=== PATIENT | female | born 1955 | race African-American/Black ===

== ENCOUNTER 2020-02-28 06:46 | Emergency (ER) | payer BC, MEDICAID ==
[~2020-02-28] VITALS: Ht 172.7 cm; Wt 61.2 kg
[2020-02-28 06:46] VITALS: BP_SYST 154
--- NOTE | 2020-02-28 07:02 | NUR ---
Patient to ER bed 6 to gown for evaluation. Side rails up.
--- NOTE | 2020-02-28 07:05 | NUR ---
Patient presented to ER C/O back pain. Patient A&Ox4, ambulatory to ER, afebrile, skin pink and warm, pain 10/10, denies N/V/D, bilat pedal pulses present. Patient states she has hx of sciatic pain and back pain. Patient states she has pain in right foot radiating to back.
--- NOTE | 2020-02-28 07:50 | NUR ---
ER Dr. Sinclair at bedside examining patient.
[2020-02-28] MEDS ORDERED: NACL 0.9% 1,000 ML IV ONE (07:54)
[2020-02-28] MEDS ORDERED: MORPHINE 4 MG/ML INJ. SYRINGE IVP ONE (08:00)
[2020-02-28] MEDS ORDERED: ONDANSETRON HCL 4 MG/2 ML VIAL IVP ONE (08:00)
[2020-02-28] MEDS ORDERED: LORazepam 2 MG/ML VIAL IVP ONE (08:00)
--- NOTE | 2020-02-28 08:37 | NUR ---
Note sharyn in ED - 02/28/20 at 0838 by BERTIN G-tube placement failed. Charge nurse Ricarda made aware.
[2020-02-28 08:50] LABS: BASOPHILS % (AUTO) 0.4 % (0.0-2.0); EOSINOPHILS # (AUTO) 0.2 K/uL (0.0-0.4); EOSINOPHILS % (AUTO) 2.2 % (0.0-4.0); HEMATOCRIT 45.4 % (36-48); HEMOGLOBIN 16.1 g/dL (12.0-16.0); LYMPHOCYTES # (AUTO) 2.3 K/uL (1.0-5.5); MEAN CORPUSCULAR HEMOGLOBIN 34 pg (27-31); MEAN CORPUSCULAR HGB CONC 36 % (32-36); MEAN CORPUSCULAR VOLUME 96 fL (79.0-98.0); MONOCYTES # (AUTO) 0.3 K/uL (0.0-1.0); MONOCYTES % (AUTO) 4.1 % (1.7-9.3); NEUTROPHILS # (AUTO) 5.4 K/uL (1.8-7.7); NEUTROPHILS % (AUTO) 65.3 % (40.0-70.0); PLATELET COUNT (AUTO) 232 K/uL (130-430); RED BLOOD CELL COUNT(AUTO) 4.76 MIL/uL (4.2-6.2); RED CELL DISTRIBUTION WIDTH 13.1 % (9.0-15.0); WHITE BLOOD COUNT (AUTO) 8.3 K/uL (4.8-10.8)
[2020-02-28 09:03] LABS: CALCIUM 8.9 mg/dL (8.4-11.0); CREATININE 0.89 mg/dL (0.55-1.30)
[2020-02-28 09:04] LABS: BILIRUBIN,URINE NEGATIVE (NEGATIVE); BLOOD, URINE NEGATIVE (NEGATIVE); CLARITY/URINE CLEAR (CLEAR); COLOR,URINE YELLOW (YELLOW); GLUCOSE,URINE NEGATIVE (NEGATIVE); KETONES,URINE NEGATIVE (NEGATIVE); LEUKOCYTE ESTERASE ,URINE NEGATIVE (NEGATIVE); NITRITE, URINE NEGATIVE (NEGATIVE); PH,URINE 5.5 (5.0-8.0); PROTEIN URINE NEGATIVE (NEGATIVE); UROBILINOGEN,URINE 0.2 (0.2-1.0)
[2020-02-28 09:08] LABS: ALBUMIN 4.1 g/dL (3.4-4.8); TOTAL BILIRUBIN 0.5 mg/dL (0.0-1.0)
[2020-02-28] MEDS ORDERED: ACETAMINOPHEN 500 MG TABLET PO ONE (10:15)
[2020-02-28 10:50] VITALS: BP_SYST 145
--- NOTE | 2020-02-28 10:50 | NUR ---
Patient given written and verbal discharge instructions and verbalizes understanding. ER MD discussed with patient the results and treatment provided. Patient in stable condition. ID arm band removed. IV catheter removed intact and dressing applied, no active bleeding. Rx of TYLENOL W/CODEINE, TYLENOL & FLEXERIL given. Patient educated on pain management and to follow up with PMD. Pain Scale 3/10. Opportunity for questions provided and answered. Medication side effect fact sheet provided.
== END 2020-02-28 10:50 | disposition home or self-care (01) ==
LOC: SED 06:46
DX: M54.41 Lumbago with sciatica, right side (principal); G89.29 Other chronic pain
CPT/HCPCS: 36415; 72100; 80053; 81003; 83605; 83690; 85025; 87040; 96374; 96375; 99284; J2060; J2270; J2405; J7030

== ENCOUNTER 2020-08-30 23:30 | Emergency (ER) | payer BC ==
[~2020-08-30] VITALS: Ht 172.7 cm; Wt 63.5 kg
[2020-08-30 23:35] VITALS: BP_SYST 136
--- NOTE | 2020-08-30 23:40 | NUR ---
Placed in room 2 . Placed on equipment monitor phototypesetting, blood pressure machine and pulse oximeter. To gown for exam. Side rails up. Report given to Fatou RODRIGUEZ.
--- NOTE | 2020-08-30 23:50 | NUR ---
PORTABLE X-RAY AT THE BEDSIDE
--- NOTE | 2020-08-30 23:54 | NUR ---
ER at bedside examining patient.
[2020-08-31] MEDS ORDERED: NITROGLYCERIN 0.4 MG TAB.SUBL SL ONE
[2020-08-31] MEDS ORDERED: ASPIRIN 81 MG TAB.CHEW PO ONE
--- NOTE | 2020-08-31 00:02 | NUR ---
# 20 gauge angiocath placed to LEFT FA. Use of asceptic technique. Opsite placed over site. Blood return noted. Blood for lab drawn from site. Flushed with 10 cc of normal saline. No evidence of infiltration noted. Patient tolerated well.
--- NOTE | 2020-08-31 00:06 | NUR ---
FIRST DOSE OF NITRO 0.4 GIVEN WITH ASA 162MG PO
--- NOTE | 2020-08-31 00:11 | NUR ---
PT REPORTS NOT RELIEF FROM CHEST PAIN 07/23. SECOND DOSE OF NITRO 0.4MG GIVEN SUBLINGUAL
[2020-08-31 00:28] LABS: BASOPHILS # (AUTO) 0.1 K/uL (0.0-0.2); BASOPHILS % (AUTO) 0.6 % (0.0-2.0); EOSINOPHILS # (AUTO) 0.3 K/uL (0.0-0.4); EOSINOPHILS % (AUTO) 1.8 % (0.0-4.0); HEMATOCRIT 41.6 % (36-48); HEMOGLOBIN 14.6 g/dL (12.0-16.0); LYMPHOCYTES # (AUTO) 2.2 K/uL (1.0-5.5); LYMPHOCYTES % (AUTO) 15.8 % (20.5-51.5); MEAN CORPUSCULAR HEMOGLOBIN 30 pg (27-31); MEAN CORPUSCULAR HGB CONC 35 % (32-36); MEAN CORPUSCULAR VOLUME 86 fL (79.0-98.0); MONOCYTES # (AUTO) 0.7 K/uL (0.0-1.0); MONOCYTES % (AUTO) 5.1 % (1.7-9.3); NEUTROPHILS # (AUTO) 10.9 K/uL (1.8-7.7); NEUTROPHILS % (AUTO) 76.7 % (40.0-70.0); PLATELET COUNT (AUTO) 259 K/uL (130-430); RED BLOOD CELL COUNT(AUTO) 4.82 MIL/uL (4.2-6.2); RED CELL DISTRIBUTION WIDTH 12.6 % (9.0-15.0); WHITE BLOOD COUNT (AUTO) 14.2 K/uL (4.8-10.8)
[2020-08-31 00:30] LABS: CREATININE 0.57 mg/dL (0.55-1.30); POTASSIUM 3.8 mmol/L (3.5-5.1)
[2020-08-31] MEDS ORDERED: DIPHENHYDRAMINE INJ 50 MG/ML VIAL IVP ONE (00:30)
[2020-08-31] MEDS ORDERED: ONDANSETRON HCL 4 MG/2 ML VIAL IVP ONE (00:30)
[2020-08-31] MEDS ORDERED: MORPHINE 4 MG/ML INJ. SYRINGE IVP ONE (00:30)
[2020-08-31 00:36] LABS: PROTHROMBIN TIME 10.3 SECS (9.5-12.5)
[2020-08-31 00:37] LABS: ALBUMIN 3.7 g/dL (3.4-4.8); TOTAL BILIRUBIN 0.5 mg/dL (0.0-1.0)
--- NOTE | 2020-08-31 00:42 | NUR ---
CRITICAL LAB REPORTING - TROPONIN 0.360. AWARE.
[2020-08-31] MEDS ORDERED: ENOXAPARIN SODIUM 80 MG/0.8 ML SYRINGE SUBCUT ONE (01:15)
--- NOTE | 2020-08-31 01:15 | NUR ---
EKG FAXED TO [facility] FOR STEMI REVIEW
--- NOTE | 2020-08-31 01:19 | NUR ---
ADMISSION ORDER RECEIVED FROM DR. YING
--- NOTE | 2020-08-31 01:25 | NUR ---
DR. YING IN ER TO SEE PT. EKG REVIEWED AND [facility]
[2020-08-31] MEDS ORDERED: PANTOPRAZOLE SODIUM 40 MG/VIAL (PROTONIX) IVP ONE (01:30)
[2020-08-31] MEDS ORDERED: SYN50 PO (01:56)
--- NOTE | 2020-08-31 02:00 | NUR ---
[facility] REFUSED [place].
--- NOTE | 2020-08-31 02:05 | NUR ---
ICH CALLED AND EKG FAXED. DR. QUEZADA CONSULTED WITH DR. AGUSTIN.
[2020-08-31] MEDS ORDERED: PANTOPRAZOLE SODIUM 40 MG/VIAL (PROTONIX) ONE (02:09)
--- NOTE | 2020-08-31 02:15 | NUR ---
PT TO BE TRANSFERRED TO [facility].
--- NOTE | 2020-08-31 02:25 | NUR ---
911 CALLED FOR STEMI TRANSPORT TO [facility]
--- NOTE | 2020-08-31 02:29 | NUR ---
REPORT CALLED TO BRENDA CANSECO RN
--- NOTE | 2020-08-31 02:38 | NUR ---
Patient to be transferred to [facility]. Is being transferred due to higher level of care. Receiving facility has accepting physician and available space. ER physician has signed transfer form. Patient or responsible republican has agreed to transfer and signed form. Patient belongings inventoried and will be sent with patient. Copy of nursing notes, lab reports, EKG, Physicians Orders and X-rays to be sent with patient. Report called to JENNIFER WESLEY at receiving facility. Receiving physician [email or web address] for transfer WITH [facility]. ETA is [phone].
[2020-08-31 02:39] VITALS: BP_SYST 114
[2020-08-31] MEDS ORDERED: MORPHINE 2 MG/ML INJ. SYRINGE IVP ONE (02:45)
[2020-08-31] MEDS ORDERED: MORPHINE 2 MG/ML INJ. SYRINGE ONE (02:55)
== END 2020-08-31 02:24 | disposition short-term general hospital (02) ==
LOC: SED 23:30 → UNDOADMIN 08-31 01:26 → STU 08-31 01:26 → SED 08-31 02:24
DX: I21.3 ST elevation (STEMI) myocardial infarction of unspecified site (principal); R07.89 Other chest pain; E03.9 Hypothyroidism, unspecified; E78.5 Hyperlipidemia, unspecified; F12.90 Cannabis use, unspecified, uncomplicated; F17.200 Nicotine dependence, unspecified, uncomplicated
CPT/HCPCS: 36415; 71045; 80053; 82550; 83880; 84484; 85025; 85610; 85730; 93005 ×2; 96372; 96374; 96375; 96376; 99285; C9113; J1200; J1650; J2270 ×2; J2405